=== PATIENT | female | born 1965 | race Two or more races ===

== ENCOUNTER 2022-07-23 05:17 | Inpatient (IN) | payer OTHER, SELFPAY ==
[2022-07-23] VITALS (7 sets, daily range): BP systolic 143–170; BP diastolic 82–114; PULSE 92–112; RESP 18–24; TEMP 36–37.1; O2SAT 92–100; BMI 32.8
--- NOTE | ~2022-07-23 | XR_ITS ---
EXAMINATION: XR CHEST CLINICAL INFORMATION: Post diuresis COMPARISON: Previous chest x-ray from yesterday TECHNIQUE: Frontal view of the chest was obtained. FINDINGS: The cardiac silhouette is still enlarged. There is interval improvement in interstitial markings suggestive of improved pulmonary edema. No pleural effusion or pneumothorax. Surgical clips in both breasts/axilla. No acute bone abnormality. XR/XR chest 1V IMPRESSION: Stable enlargement of the cardiac silhouette. Improved interstitial pulmonary edema.
--- NOTE | ~2022-07-23 | XR_ITS ---
EXAMINATION: XR CHEST CLINICAL INFORMATION: Dyspnea COMPARISON: None available. TECHNIQUE: Frontal view of the chest was obtained. FINDINGS: Lung volumes are symmetric. No focal consolidation is seen. There is mild interstitial prominence bilaterally which may indicate mild interstitial edema. No evidence of pneumothorax. Trace pleural effusions are difficult to exclude. Cardiac silhouette is enlarged. Bilateral axillary clips noted. No acute osseous findings are seen. XR/XR chest 1V IMPRESSION: Diffuse interstitial prominence which may indicate mild interstitial edema in the proper clinical setting. Enlarged cardiac silhouette.
[2022-07-23 05:59] LABS: MANUAL DIFF FLAG NO
[2022-07-23 06:01] LABS: Basophils Absolute Auto 0.1 X10*3/uL (0.0-0.2); Basophils Percent Auto 0.6 % (0-2); Eosinophils Absolute Auto 0.1 X10*3/uL (0.0-0.4); Eosinophils Percent Auto 0.9 % (0-4); Hematocrit 44.2 % (37.0-47.0); Hemoglobin 14.6 g/dl (12.0-16.0); Imm Gran Abs Auto 0.04 X10*3/uL (0.00-0.03); Imm Gran Pct Auto 0.4 % (0.0-0.4); Lymphocytes Absolute Auto 1.4 X10*3/uL (1.2-4.9); Mean Corpuscular Hemoglobin 31.6 pg (27.0-33.0); Mean Corpuscular Volume 95.7 fL (80.0-98.0); Mean Platelet Volume 10.2 fL (9.4-12.3); Monocytes Absolute Auto 0.8 X10*3/uL (0.1-1.2); Monocytes Percent Auto 8.7 % (2-11); Neutrophils Absolute Auto 6.6 x10*3/uL (2.0-8.3); Neutrophils Percent Auto 73.4 % (45-73); Platelet Count 238 X10*3/uL (160-400); Red Blood Count 4.62 X10*6/uL (4.20-5.50); Red Cell Distribution Width 14.9 % (11.0-16.0)
--- NOTE | 2022-07-23 06:03 | ED.SOB ---
HPI - SOB/Dyspnea General Chief Complaint: Dyspnea Stated Complaint: Difficulty breathing Time Seen by Provider: 07/23/22 05:51 History of Present Illness HPI Narrative: Patient is a 56-year-old female presents today with coughing congestion upper respiratory symptoms. The symptoms been ongoing for 3 weeks. Went to see urgent care. Continued to have coughing continued have upper respiratory symptoms. Patient from home. Had a slight muffling in voice. Denies any nausea vomiting diarrhea. No fever no chills. No leg swelling Related Data Allergies Allergy/AdvReac Type Severity Reaction Status Date / Time fluoxetine [Prozac] Allergy Unknown Unknown Verified 02/22/20 13:10 Review of Systems Review of Systems: Positive coughing congestion a history symptoms no leg swelling not change with position Yes all other systems are reviewed and are negative [facility] Past Medical History Medical History (Updated 07/23/22 @ 07:03 by Lyly West MD) Anemia Bipolar disorder GERD (gastroesophageal reflux disease) History of breast cancer Insomnia Overweight (BMI 25.0-29.9) Thrombocytopenia Vitamin D deficiency Surgical History History of lumpectomy of left breast Family History Family History Father No problems noted. Mother CAD (coronary artery disease) Gastric cancer Maternal Aunt Cancer of blood vessel Social History Social History Smoked in Last 30 Days: No Use of substances other than those prescribed or required for medical reasons: No Advance Directives: No Advance Directives Information Provided: Yes Patient : No Physical Exam Vital Signs: Vital Signs: Last Vital Signs Temp 97.6 F 07/23/22 05:27 Pulse 104 H 07/23/22 06:14 Resp 24 H 07/23/22 05:27 BP 162/114 H 07/23/22 05:27 Pulse Ox 96 07/23/22 05:27 O2 Del Method Room Air 07/23/22 05:27 BMI result Body Mass Index 32.8 Appearance: Alert. Oriented X3. No acute distress. Eyes: Pupils equal, round and reactive to light. ENT: Pharynx normal. Neck: Normal inspection. Neck supple. No lymph nodes noted. No crepitus CVS: Normal heart rate and rhythm. Pulses normal. Normal S1 and S2 Respiratory: No respiratory distress. Breath sounds normal. No Wheezing. No rales Abdomen: Soft and nontender. No rigidity. No distention. good BS x4 Skin: Skin warm and dry. Normal skin color. Normal skin turgor. Extremities: No lower extremity edema. Neurovascular intact to all extremities. No Lacerations. No Rash Neuro: Oriented X 3. No motor deficit. No sensory deficit. Moving all extermities. No slurred speech Medications Administered Discontinued Medications Generic Name Dose Route Start Last Admin Trade Name Freq PRN Reason Stop Dose Admin Albuterol/Ipratropium 3 ml 07/23/22 06:00 07/23/22 06:11 Albuterol/Iprat 2.5/0.5mg 3 Ml Ampul.Neb INHALE 07/23/22 06:01 3 ml ONCE ONE Administration Aspirin 324 mg 07/23/22 06:40 07/23/22 06:53 Aspirin 81 Mg Tab.Chew PO 07/23/22 06:41 324 mg ONCE ONE Administration Furosemide 40 mg 07/23/22 06:35 07/23/22 06:52 Furosemide 40 Mg/4 Ml Vial IVPUSH 07/23/22 06:36 40 mg ONCE ONE Administration Protocol Nitroglycerin 0.5 inch 07/23/22 06:40 07/23/22 06:53 Nitroglycerin 2 % Oint 1 Gm Packet TRANSDERMA 07/23/22 06:41 0.5 inch ONCE ONE Administration Medical Decision Making Medical Decision Making [facility] Narrative: Patient is 56 years old presents today with having increasing shortness of breath not feeling well. Patient was at urgent care diagnosis bronchitis. On exam patient was noted to have bilateral lower extremity edema. Mild wheezing bilaterally. Labs were done. Patient's BNP was 14 146. Troponin elevated at 30.8. Chest x-ray consistent with congestive heart failure. Lasix was started nitro was started aspirin given. Patient never had congestive heart failure in the past. O2 sat is 96% on room air. Patient's respiratory rate is elevated at 24. A CTA of the chest is currently pending. Will require admission for new onset CHF. Patient's COVID RSV flu test were all negative. My interpretation patient's EKG showed a Lab Data 07/23/22 05:50 07/23/22 05:50 Labs: Lab Results 07/23/22 07/23/22 07/23/22 Range/Units 05:50 05:50 05:50 WBC 9.0 (4.8-10.8) X10*3/uL RBC 4.62 (4.20-5.50) X10*6/uL Hgb 14.6 (12.0-16.0) g/dl Hct 44.2 (37.0-47.0) % MCV 95.7 (80.0-98.0) fL MCH 31.6 (27.0-33.0) pg MCHC 33.0 (31.0-35.0) g/dl RDW 14.9 (11.0-16.0) % Plt Count 238 (160-400) X10*3/uL MPV 10.2 (9.4-12.3) fL Immature Gran % (Auto) 0.4 (0.0-0.4) % Neut % (Auto) 73.4 H (45-73) % Lymph % (Auto) 16.0 L (20-40) % [place] % (Auto) 8.7 (2-11) % Eos % (Auto) 0.9 (0-4) % Baso % (Auto) 0.6 (0-2) % Lymph # (Auto) 1.4 (1.2-4.9) X10*3/uL [place] # (Auto) 0.8 (0.1-1.2) X10*3/uL Eos # (Auto) 0.1 (0.0-0.4) X10*3/uL Baso # (Auto) 0.1 (0.0-0.2) X10*3/uL Abs Immat Gran (auto) 0.04 H (0.00-0.03) X10*3/uL Absolute Neuts (auto) 6.6 (2.0-8.3) x10*3/uL Absolute Nucleated RBC 0.000 (0.0-0.012) X10*3/uL Nucleated RBC % (auto) 0.0 (0.0-0.2) /100WBC D-Dimer High Sensitivty 434 NG/ML Sodium 139 (135-145) mmol/L Potassium 3.8 (3.3-5.1) mmol/L Chloride 109 H (96-108) mmol/L Carbon Dioxide 19 L (22-29) mmol/L Anion Gap 15 (12-20) BUN 13 (9-16) mg/dL Creatinine 0.83 (0.5-1.4) mg/dL Estim Creat Clear Calc 70.6 Estimated GFR > 60 Random Glucose 125 H (60-115) mg/dL Calcium 8.8 (8.4-10.2) mg/dL Total Bilirubin 1.4 H (0.0-1.0) mg/dL Direct Bilirubin 0.3 (0.0-0.5) mg/dL AST 43 H (5-31) U/L ALT 79 H (0-31) U/L Alkaline Phosphatase 82 (39-117) U/L Troponin I High Sens (<3.5-17.0) ng/L B-Natriuretic Peptide (<100) pg/mL Total Protein 7.1 (6.5-8.0) g/dL Albumin 3.8 (3.5-5.0) g/dL Lipase 11 (8-78) U/L Influenza Type A (PCR) (Negative) Influenza Type B (PCR) (Negative) RSV RNA Qual (PCR) (Negative) SARS-CoV-2 RNA (RT-PCR) (Negative) 07/23/22 07/23/22 07/23/22 Range/Units 05:50 05:50 06:11 WBC (4.8-10.8) X10*3/uL RBC (4.20-5.50) X10*6/uL Hgb (12.0-16.0) g/dl Hct (37.0-47.0) % MCV (80.0-98.0) fL MCH (27.0-33.0) pg MCHC (31.0-35.0) g/dl RDW (11.0-16.0) % Plt Count (160-400) X10*3/uL MPV (9.4-12.3) fL Immature Gran % (Auto) (0.0-0.4) % Neut % (Auto) (45-73) % Lymph % (Auto) (20-40) % [place] % (Auto) (2-11) % Eos % (Auto) (0-4) % Baso % (Auto) (0-2) % Lymph # (Auto) (1.2-4.9) X10*3/uL [place] # (Auto) (0.1-1.2) X10*3/uL Eos # (Auto) (0.0-0.4) X10*3/uL Baso # (Auto) (0.0-0.2) X10*3/uL Abs Immat Gran (auto) (0.00-0.03) X10*3/uL Absolute Neuts (auto) (2.0-8.3) x10*3/uL Absolute Nucleated RBC (0.0-0.012) X10*3/uL Nucleated RBC % (auto) (0.0-0.2) /100WBC D-Dimer High Sensitivty NG/ML Sodium (135-145) mmol/L Potassium (3.3-5.1) mmol/L Chloride (96-108) mmol/L Carbon Dioxide (22-29) mmol/L Anion Gap (12-20) BUN (9-16) mg/dL Creatinine (0.5-1.4) mg/dL Estim Creat Clear Calc Estimated GFR Random Glucose (60-115) mg/dL Calcium (8.4-10.2) mg/dL Total Bilirubin (0.0-1.0) mg/dL Direct Bilirubin (0.0-0.5) mg/dL AST (5-31) U/L ALT (0-31) U/L Alkaline Phosphatase (39-117) U/L Troponin I High Sens 30.8 H (<3.5-17.0) ng/L B-Natriuretic Peptide 1446 H (<100) pg/mL Total Protein (6.5-8.0) g/dL Albumin (3.5-5.0) g/dL Lipase (8-78) U/L Influenza Type A (PCR) NEGATIVE (Negative) Influenza Type B (PCR) NEGATIVE (Negative) RSV RNA Qual (PCR) NEGATIVE (Negative) SARS-CoV-2 RNA (RT-PCR) NEGATIVE (Negative) Critical Care Time Critical Care Time Critical Care Time: Yes Total Critical Care Time: 40 Attestation: I have personally provided 40 minutes of critical care time exclusive of time spent on separately billable procedures. Time includes review of lab data, radiology results, discussion with consultants, and monitoring for potential decompensation. Interventions were performed as documented above Discharge Plan Discharge Clinical Impression: Congestive heart failure Patient Disposition: Admitted As Inpatient
[2022-07-23] MEDS: Albuterol/Iprat 2.5/0.5MG 3 ML AMPUL.NEB INHALE (06:11)
[2022-07-23 06:12] LABS: D Dimer High Sensitivity 434 NG/ML
[2022-07-23 06:25] LABS: Troponin-I High Sensitivity 30.8 ng/L (<3.5-17.0)
[2022-07-23 06:33] LABS: Alanine Aminotransferase 79 U/L (0-31); Albumin Level 3.8 g/dL (3.5-5.0); Alkaline Phosphatase 82 U/L (39-117); Anion Gap 15 (12-20); Aspartate Amino Transferase 43 U/L (5-31); B Type Natriuretic Peptide 1446 pg/mL (<100); Bilirubin Direct 0.3 mg/dL (0.0-0.5); Bilirubin Total 1.4 mg/dL (0.0-1.0); Blood Urea Nitrogen 13 mg/dL (9-16); Calcium 8.8 mg/dL (8.4-10.2); Carbon Dioxide 19 mmol/L (22-29); Chloride 109 mmol/L (96-108); Creatinine Clr Calc Pharmacy 70.6; Estimated Glomerular Filt Rate > 60; Glucose Random 125 mg/dL (60-115); Lipase 11 U/L (8-78); Potassium 3.8 mmol/L (3.3-5.1); Sodium 139 mmol/L (135-145); Total Protein 7.1 g/dL (6.5-8.0)
[2022-07-23] MEDS: Furosemide 40 MG/4 ML VIAL IVPUSH ×2 (06:52→20:00)
[2022-07-23 06:53] LABS: Influenza A PCR NEGATIVE (Negative); Influenza B PCR NEGATIVE (Negative); Resp Syncy Virus RNA Qual PCR NEGATIVE (Negative); SARS COV2 PCR INHOUSE NEGATIVE (Negative)
[2022-07-23] MEDS: Aspirin 81 MG TAB.CHEW 324 MG PO (06:53)
[2022-07-23] MEDS: Nitroglycerin 2 % Oint 1 GM Packet 0.5 INCH TRANSDERMA (06:53)
--- NOTE | 2022-07-23 07:00 | CA_ITS ---
Transthoracic Echocardiogram Patient (Last, First, Middle): Hollie Angel, Gender: Female Date of : 1965 Age: 56 Procedure Date: 07/23/2022 Procedure Type: Transthoracic Echocardiogram Location: [facility] Height: 152.4 cm Weight: 76.2 kg BSA: 1.73 m2 Heart Rate: bpm BP: 162 / 114 mmHg Area Operations Manager: Referring MD: Austin Martinez MD Symptoms: chf Study Quality: Excellent ECG Rhythm: Sinus Conclusions: - Mildly increased left ventricular cavity size. There is mildly increased left ventricular wall thickness. The left ventricular systolic function is severely decreased. The visually estimated ejection fraction is between 15-20%. - Mildly increased right ventricular cavity size. There is borderline right ventricular systolic function. - There is moderate mitral valve regurgitation. - Moderately elevated right atrial pressure. Moderate pulmonary hypertension is present. Findings Left Ventricle Mildly increased left ventricular cavity size. There is mildly increased left ventricular wall thickness. The left ventricular systolic function is severely decreased. The visually estimated ejection fraction is between 15 20%. There is severe global hypokinesis. Abnormal diastolic function is noted. Spectral Doppler is indicative of a pseudonormal filling pattern. Elevated filling pressures. Right Ventricle Mildly increased right ventricular cavity size. There is borderline right ventricular systolic function. Atria The left atrium is normal in size. Aortic Valve There is a normal trileaflet aortic valve. There is mild calcification of the aortic valve. There is no aortic valve stenosis. There is mild aortic valve regurgitation. Mitral Valve The anterior mitral leaflet has restricted mobility and the posterior mitral leaflet has restricted mobility. There is mild mitral annular calcification. There is moderate mitral valve regurgitation. There is no mitral valve stenosis. Pulmonic Valve Normal pulmonic valve structure and function. There is trace pulmonic valve regurgitation. Tricuspid Valve Normal tricuspid valve structure. There is moderate tricuspid valve regurgitation. Moderately elevated right atrial pressure. Moderate pulmonary hypertension is present. Great Vessels All visible segments of the aorta are normal in size. The visualized portions of the pulmonary artery and branches are normal. Venous The inferior vena cava is dilated and collapses greater than 50% with inspiration. Pericardium/Pleural There is no evidence of pericardial effusion. Prior Study Comparison No prior study available for comparison. Measurements 2D Linear Measurements IVSd: 1.05 0.6-0.9/0.6-1.0 cm LVIDd: 5.56 3.9-5.3/4.2-5.9 cm LVIDd Index: 3.21 2.4-3.2/2.2-3.1 cm/m2 LVIDs: 5.20 2.0-3.6 cm LVPWd: 1.14 0.7-1.1 cm Ao Root: 2.90 2.1-3.5 cm LA Diam: 4.20 2.7-3.8/3.0-4.0 cm LAIDs Index: 2.43 1.5-2.3 cm/m2 LV Mass: 305.35 67-162/88-224 g LV Mass Index: 176.50 43-95/49-115 g/m2 LVOT Diam: 2.00 3.0+(-)1.3 cm 2D Systolic Function EF 4C: 17.80 >55% EF 2C: 19.80 >55% EF BiP: 18.30 >55% Mitral Valve MV Pk E: 1.24 MV PK A: 0.64 MV Decel Time: 82.00 E/A: 1.90 E'Lateral: 5.44 E'Medial: 4.35 E/E' Med: 28.50 E/E' Lat: 22.80 PHT: 24.00 MVA PHT: 9.17 Decel [place]: 15.12 MR Vol - PW Dopp: 33.22 MR VTI: 1.51 MR ERO: 22.00 MR Alias Timothy: 0.36 MR RAD: 0.70 Aortic Valve AoV Pk Timothy: 1.55 AoV Mn Timothy: 0.99 AoV VTI: 0.26 AoV Pk Grad: 10.00 Aov Mn Grad: 5.00 URI Cont.VTI: 1.64 LVOT LVOT Pk Timothy: 0.76 LVOT Mn Timothy: 0.46 LVOT VTI: 0.13 LVOT Pk Grad: 2.00 LVOT Mn Grad: 1.00 LVOT Diam: 2.00 LVOT Area: 3.14 Diastolic Function MV Pk E: 1.24 MV Pk A: 0.64 E/A: 1.90 E'Medial: 4.35 E/E' Med: 28.50 E' Laterial: 5.44 E/E' Lat: 22.80 Right Ventricle TAPSE (mm): 22.00 Tricuspid Valve TR Pk Timothy: 3.26 TR Pk Grad: 43.00 RA Press: 8.00 RVSP: 51.00 Great Vessels Aorta Ao Root-2D: 2.90 2.0-3.7 cm Ao Asc: 3.00 2.1-3.4 cm Pulmonary Valve PV Pk Timothy: 0.86 Peak PV Grad: 3.00 Updated in Other Vendor System with Status of Final Pelon Williamson MD electronically signed on 07/23/2022 8:03:21 PM with status of Final
--- NOTE | 2022-07-23 07:01 | ECG_ITS ---
Test Reason : SOB Blood Pressure : / mmHG Vent. Rate : 104 BPM Atrial Rate : 104 BPM P-R Int : 132 ms QRS Dur : 088 ms QT Int : 376 ms P-R-T Axes : 044 -31 066 degrees QTc Int : 494 ms Sinus tachycardia Possible Left atrial enlargement Left axis deviation Left ventricular hypertrophy ( R in aVL , Sokolow-Serrano , Anibal product , Romhilt-Diop ) Nonspecific T wave abnormality Abnormal ECG No previous ECGs available Referred By: Lyly West Electronically Signed By:Pelon Williamson
--- NOTE | 2022-07-23 07:24 | PC.NURSE ---
Resumed care of this patient this morning, spent a considerable amount of time at bedside with night nurse and patient discussing situation as pt wants to leave AMA. Pt stating she will come back but needs to take care of things at home first. Providers made aware, pt educated to not leave without telling staff first, she is in agreement to get the testing done that is ordered at this time, but is not going to stay for an admission at this time. will continue to monitor needs.
--- NOTE | 2022-07-23 07:54 | P.HPHOSP_ITS ---
History of Present Illness Date of Service: 07/23/22 Chief Complaint: sob 56F PMH breast cancer s/p chemo and radiation, obesity, mood disorder, presented with sob. patient has been feeling sob for about 3 weeks, orthopenia, dry cough, raspy voice, thought she had viral illness, went to urgent care, was sent to ED to rule out pna. in ED found to have elevated bnp, ekg with signs of lvh, cxr with pulm edema and cardiomegaly. patient denies fever, chills, chest pain, reports pedal edema and weight gain. Review of Systems Review of Systems: Yes all other systems are reviewed and are negative [facility] Medical History (Updated 07/23/22 @ 07:57 by Austin Martinez MD) Anemia Bipolar disorder GERD (gastroesophageal reflux disease) History of breast cancer Overweight (BMI 25.0-29.9) Vitamin D deficiency Family History Father No problems noted. Mother CAD (coronary artery disease) Gastric cancer Maternal Aunt Cancer of blood vessel Surgical History History of lumpectomy of left breast Social History Smoked in Last 30 Days: No Use of substances other than those prescribed or required for medical reasons: No Advance Directives: No Advance Directives Information Provided: Yes Patient : No Meds Allergies Allergy/AdvReac Type Severity Reaction Status Date / Time fluoxetine [Prozac] Allergy Unknown Unknown Verified 02/22/20 13:10 Active Medications: Current Medications Enoxaparin Sodium (Enoxaparin Sodium 40 Mg/0.4 Ml Syringe) 40 mg SUBCUT Q24H JENNIFER Furosemide (Furosemide 40 Mg/4 Ml Vial) 40 mg IVPUSH BID@0900,1800 JENNIFER; Protocol Pharmacy Consult (Consult Rx Perform Med Rec) 1 each MISCELLANE ONCE PRN PRN Reason: Consult order Pharmacy Consult (Consult Rx Perform Med Rec) 1 each MISCELLANE ONCE PRN PRN Reason: Consult order Sodium Chloride (0.9 % Sodium Chloride Flush 3 Ml Syringe) 3 ml IVFLUSH QSHIFT JENNIFER Physical Exam Vital Signs and Narrative: Vital Signs: Last Vital Signs Temp 97.6 F 07/23/22 05:27 Pulse 104 H 07/23/22 07:53 Resp 18 07/23/22 07:53 BP 160/101 H 07/23/22 07:53 Pulse Ox 96 07/23/22 05:27 O2 Del Method Room Air 07/23/22 05:27 BMI result Body Mass Index 32.8 General: AO X 3, dyspniec Resp: Crackles bilateral, mild accessory muscles used CVS: S1,S2,Rapid, regular, pedal edema GI: soft, non tender, non distended Neuro: motor grossly intact, alert Psych: appropriate affect, appropriate insight Results Labs 07/23/22 05:50 07/23/22 05:50 Labs: Laboratory Results - last 24 hr 07/23/22 07/23/22 07/23/22 05:50 05:50 05:50 MCV 95.7 MCH 31.6 MCHC 33.0 RDW 14.9 Plt Count 238 MPV 10.2 Immature Gran % (Auto) 0.4 Neut % (Auto) 73.4 H Lymph % (Auto) 16.0 L [place] % (Auto) 8.7 Eos % (Auto) 0.9 Baso % (Auto) 0.6 Lymph # (Auto) 1.4 [place] # (Auto) 0.8 Eos # (Auto) 0.1 Baso # (Auto) 0.1 Abs Immat Gran (auto) 0.04 H Absolute Neuts (auto) 6.6 Absolute Nucleated RBC 0.000 Nucleated RBC % (auto) 0.0 D-Dimer High Sensitivty 434 Anion Gap 15 Estim Creat Clear Calc 70.6 Estimated GFR > 60 Random Glucose 125 H Calcium 8.8 Total Bilirubin 1.4 H Direct Bilirubin 0.3 AST 43 H ALT 79 H Alkaline Phosphatase 82 Troponin I High Sens B-Natriuretic Peptide Total Protein 7.1 Albumin 3.8 Lipase 11 Influenza Type A (PCR) Influenza Type B (PCR) RSV RNA Qual (PCR) SARS-CoV-2 RNA (RT-PCR) 07/23/22 07/23/22 07/23/22 05:50 05:50 06:11 MCV MCH MCHC RDW Plt Count MPV Immature Gran % (Auto) Neut % (Auto) Lymph % (Auto) [place] % (Auto) Eos % (Auto) Baso % (Auto) Lymph # (Auto) [place] # (Auto) Eos # (Auto) Baso # (Auto) Abs Immat Gran (auto) Absolute Neuts (auto) Absolute Nucleated RBC Nucleated RBC % (auto) D-Dimer High Sensitivty Anion Gap Estim Creat Clear Calc Estimated GFR Random Glucose Calcium Total Bilirubin Direct Bilirubin AST ALT Alkaline Phosphatase Troponin I High Sens 30.8 H B-Natriuretic Peptide 1446 H Total Protein Albumin Lipase Influenza Type A (PCR) NEGATIVE Influenza Type B (PCR) NEGATIVE RSV RNA Qual (PCR) NEGATIVE SARS-CoV-2 RNA (RT-PCR) NEGATIVE Imaging Radiologist's Impressions: Impressions Chest X-Ray 07/23/22 05:43 IMPRESSION: Diffuse interstitial prominence which may indicate mild interstitial edema in the proper clinical setting. Enlarged cardiac silhouette. Assessment and Plan (1) Congestive heart failure: Status: Acute Plan 56F PMH breast cancer s/p chemo and radiation, obesity, mood disorder, presented with sob acute chf unspecified iv lasix, is and os, echo, cardio eval mildly elevated ddimer very low likelihood of vte history of breast ca outpatinet follow up obesity weight loss mood disorder dvt prophylaxis- lovenox full code patient with new onset chf requiring iv diuresis, signifincant volume overload therefore likely to need atleast 2 midnights inpatient Time Spent With Patient Time: Total time managing care of this patient today ____ minutes. Quality Stroke Does the patient have a stroke diagnosis?: No VTE Prior VTE?: No VTE Risk Level:: Medical - moderate - high VTE Device Contraindication: Treatment Not Indicated VTE Drug Contraindication: N/A - Med Ordered
--- NOTE | 2022-07-23 07:55 | PC.NURSE ---
Son at beside, re-reviewed plan, and new diagnosis, pt is in agreement to stay at hospital, and continue monitoring.
--- NOTE | 2022-07-23 08:00 | PC.NURSE ---
Verified Lasix doseage with Provider, he does not want her to receive 0900 dose, and to proceed with next dose at 2100, pharmacy called to update dose
[2022-07-23 08:01] LABS: Cholesterol 159 mg/dL; HDL Cholesterol 47 mg/dL; LDL Cholesterol Calculated 97 mg/dl; Triglycerides 78 mg/dL
[2022-07-23 08:10] LABS: Estimated Average Glucose 105 mg/dL; Hemoglobin A1c % 5.3 %
[2022-07-23] MEDS: Enoxaparin Sodium 40 MG/0.4 ML SYRINGE SUBCUT (08:10)
[2022-07-23] MEDS: 0.9 % Sodium Chloride Flush 3 ML SYRINGE IVFLUSH ×2 (08:11→15:51)
--- NOTE | 2022-07-23 09:20 | PHA.MEDREC ---
Pharmacy Consult ? Medication Reconciliation Pharmacy has completed the medication reconciliation. Patient states the only home med she is on is occasional albuterol inhaler
[2022-07-23] MEDS: Isosorbide Mononitrate 30 MG TAB.ER.24H PO (13:53)
[2022-07-23] MEDS: Losartan Potassium 25 MG TABLET PO (13:53)
--- NOTE | 2022-07-23 14:47 | P.CONCA_ITS ---
History of Present Illness History of Present Illness Date of Service: 07/23/22 Requesting physician: Austin Martinez Chief complaint: CHF Narrative: 56-year-old female who we are consulted for acute congestive heart failure. She has been experiencing shortness of breath and cough specially with laying flat over the last few weeks. She has been treated for bronchitis. She was sent in for chest x-ray which showed concern for congestive heart failure and she was admitted. She is hypertensive. She has history of breast cancer involving the left breast requiring surgery and radiation approximately 20 years ago. She also had breast cancer on the right side requiring surgery. She has some orthopnea. Clinically she appears to be volume overloaded. She also had some chest discomfort which she describes as a tight feeling 2 weeks ago before the breathing issue started. She has not had recurrent chest discomfort. Blood pressure as mentioned is elevated. She is also tachycardic. [facility] Past Medical History Medical History (Updated 07/23/22 @ 07:57 by Austin Martinez MD) Anemia Bipolar disorder GERD (gastroesophageal reflux disease) History of breast cancer Overweight (BMI 25.0-29.9) Vitamin D deficiency Family History Family History Father No problems noted. Mother CAD (coronary artery disease) Gastric cancer Maternal Aunt Cancer of blood vessel Surgical History Surgical History History of lumpectomy of left breast Social History Social History Household Members: None Housing: Apartment Patient Tobacco Use Status: Never used Tobacco Meds Allergies Allergy/AdvReac Type Severity Reaction Status Date / Time fluoxetine [Prozac] Allergy Unknown Unknown Verified 02/22/20 13:10 Active Medications: Current Medications Enoxaparin Sodium (Enoxaparin Sodium 40 Mg/0.4 Ml Syringe) 40 mg SUBCUT Q24H [facility] Last Admin: 07/23/22 08:10 Dose: 40 mg Furosemide (Furosemide 40 Mg/4 Ml Vial) 40 mg IVPUSH BID@0900,1800 [facility]; Protocol Isosorbide Mononitrate (Isosorbide Mononitrate 30 Mg Tab.Er.24h) 30 mg PO DAILY JENN[facility]ER; Protocol Last Admin: 07/23/22 13:53 Dose: 30 mg Losartan Potassium (Losartan Potassium 25 Mg Tablet) 25 mg PO DAILY [facility]; Protocol Last Admin: 07/23/22 13:53 Dose: 25 mg Pharmacy Consult (Consult Rx Perform Med Rec) 1 each MISCELLANE ONCE PRN PRN Reason: Consult order Pharmacy Consult (Consult Rx Perform Med Rec) 1 each MISCELLANE ONCE PRN PRN Reason: Consult order Sodium Chloride (0.9 % Sodium Chloride Flush 3 Ml Syringe) 3 ml IVFLUSH QSHIFT [facility] Last Admin: 07/23/22 08:11 Dose: 3 ml Home Medications Medication Instructions Recorded Confirmed Last Taken Type albuterol sulfate 90 mcg/actuation 2 puff inhalation Q4H PRN 07/23/22 07/23/22 Unknown History aerosol inhaler (Ventolin HFA) Shortness Of Breath Or Wheezing Physical Exam Vital Signs: Vital Signs: Last Vital Signs Temp 96.8 F 07/23/22 12:00 Pulse 109 H 07/23/22 12:00 Resp 20 07/23/22 12:00 BP 170/106 H 07/23/22 12:00 Pulse Ox 100 07/23/22 12:00 O2 Del Method Room Air 07/23/22 12:00 BMI result Body Mass Index 32.8 GENERAL APPEARANCE: in no acute distress, pleasant. NECK: no carotid bruit, + jugular venous distention. SKIN: no suspicious lesions, warm and dry. HEART: no murmurs, regular rate and rhythm. Tachycardic. LUNGS: clear to auscultation bilaterally. ABDOMEN: soft, nontender. EXTREMITIES: + edema. PERIPHERAL PULSES: equal. NEUROLOGIC: No gross deficits, AAO X 3 Objective Labs and Meds 07/23/22 05:50 07/23/22 05:50 Lab results: Laboratory Results - last 24 hr 07/23/22 07/23/22 07/23/22 05:50 05:50 05:50 WBC 9.0 RBC 4.62 Hgb 14.6 Hct 44.2 MCV 95.7 MCH 31.6 MCHC 33.0 RDW 14.9 Plt Count 238 MPV 10.2 Immature Gran % (Auto) 0.4 Neut % (Auto) 73.4 H Lymph % (Auto) 16.0 L [place] % (Auto) 8.7 Eos % (Auto) 0.9 Baso % (Auto) 0.6 Lymph # (Auto) 1.4 [place] # (Auto) 0.8 Eos # (Auto) 0.1 Baso # (Auto) 0.1 Abs Immat Gran (auto) 0.04 H Absolute Neuts (auto) 6.6 Absolute Nucleated RBC 0.000 Nucleated RBC % (auto) 0.0 D-Dimer High Sensitivty 434 Sodium 139 Potassium 3.8 Chloride 109 H Carbon Dioxide 19 L Anion Gap 15 BUN 13 Creatinine 0.83 Estim Creat Clear Calc 70.6 Estimated GFR > 60 Random Glucose 125 H Estimat Average Glucose Hemoglobin A1c % Calcium 8.8 Total Bilirubin 1.4 H Direct Bilirubin 0.3 AST 43 H ALT 79 H Alkaline Phosphatase 82 Troponin I High Sens B-Natriuretic Peptide Total Protein 7.1 Albumin 3.8 Triglycerides 78 Cholesterol 159 LDL Cholesterol, Calc 97 HDL Cholesterol 47 Lipase 11 Influenza Type A (PCR) Influenza Type B (PCR) RSV RNA Qual (PCR) SARS-CoV-2 RNA (RT-PCR) 07/23/22 07/23/22 07/23/22 05:50 05:50 05:50 WBC RBC Hgb Hct MCV MCH MCHC RDW Plt Count MPV Immature Gran % (Auto) Neut % (Auto) Lymph % (Auto) [place] % (Auto) Eos % (Auto) Baso % (Auto) Lymph # (Auto) [place] # (Auto) Eos # (Auto) Baso # (Auto) Abs Immat Gran (auto) Absolute Neuts (auto) Absolute Nucleated RBC Nucleated RBC % (auto) D-Dimer High Sensitivty Sodium Potassium Chloride Carbon Dioxide Anion Gap BUN Creatinine Estim Creat Clear Calc Estimated GFR Random Glucose Estimat Average Glucose 105 Hemoglobin A1c % 5.3 Calcium Total Bilirubin Direct Bilirubin AST ALT Alkaline Phosphatase Troponin I High Sens 30.8 H B-Natriuretic Peptide 1446 H Total Protein Albumin Triglycerides Cholesterol LDL Cholesterol, Calc HDL Cholesterol Lipase Influenza Type A (PCR) Influenza Type B (PCR) RSV RNA Qual (PCR) SARS-CoV-2 RNA (RT-PCR) 07/23/22 06:11 WBC RBC Hgb Hct MCV MCH MCHC RDW Plt Count MPV Immature Gran % (Auto) Neut % (Auto) Lymph % (Auto) [place] % (Auto) Eos % (Auto) Baso % (Auto) Lymph # (Auto) [place] # (Auto) Eos # (Auto) Baso # (Auto) Abs Immat Gran (auto) Absolute Neuts (auto) Absolute Nucleated RBC Nucleated RBC % (auto) D-Dimer High Sensitivty Sodium Potassium Chloride Carbon Dioxide Anion Gap BUN Creatinine Estim Creat Clear Calc Estimated GFR Random Glucose Estimat Average Glucose Hemoglobin A1c % Calcium Total Bilirubin Direct Bilirubin AST ALT Alkaline Phosphatase Troponin I High Sens B-Natriuretic Peptide Total Protein Albumin Triglycerides Cholesterol LDL Cholesterol, Calc HDL Cholesterol Lipase Influenza Type A (PCR) NEGATIVE Influenza Type B (PCR) NEGATIVE RSV RNA Qual (PCR) NEGATIVE SARS-CoV-2 RNA (RT-PCR) NEGATIVE Imaging Radiologist's impression: Impressions Chest X-Ray 07/23/22 05:43 IMPRESSION: Diffuse interstitial prominence which may indicate mild interstitial edema in the proper clinical setting. Enlarged cardiac silhouette. Assessment and Plan (1) Congestive heart failure: Status: Acute Plan Pleasant 56-year-old female with bipolar disorder and background of breast cancer requiring left mastectomy and radiation therapy approximately 20 years ago presenting for shortness of breath and congestive heart failure. Clinically she appears to be volume overloaded and has peripheral edema as well as JVD. Agree with IV diuretics. Blood pressure is elevated. Adding losartan 25 mg once a day. Will also add isosorbide mononitrate 30 mg once a day. Will get an echocardiogram on her. Given radiation the past she can have restrictive cardiomyopathy but sometimes coronary disease specially involving the coronary ostia is a possibility too. Her EKG is showing left ventricular hypertrophy but does not have any dynamic ischemic changes currently. High sensitivity troponin level is 30.8 and BNP is 1 446. Check echocardiogram to assess for any cardiomyopathy. If she has significant cardiomyopathy then she may need inpatient ischemic evaluation. Currently would avoid beta blockers till we have echocardiography performed to rule out any LV dysfunction. We will follow along with you. Please avoid beta-jacquelyn as mentioned. Thank you for allowing me to participate in the care of your patient. Please feel free to contact me if you have any questions. Time Spent With Patient Time: Total time managing care of this patient today ____ minutes. Procedures Date of Service Date of Service: 07/23/22
[2022-07-23] MEDS: guaiFEN/Codeine SF 200/20/10ML 10 ML LIQUID 5 ML PO ×2 (15:49→19:59)
[2022-07-23] MEDS: Zolpidem Tartrate 5 MG TABLET PO (20:11)
[2022-07-23] MEDS: Acetaminophen 325 MG TABLET 650 MG PO (20:11)
[2022-07-24] MEDS: guaiFEN/Codeine SF 200/20/10ML 10 ML LIQUID 5 ML PO ×4 (00:05→19:51)
[2022-07-24] MEDS: 0.9 % Sodium Chloride Flush 3 ML SYRINGE IVFLUSH ×3 (00:08→17:36)
[2022-07-24 02:58] VITALS: BP 138/78; PULSE 84; RESP 20; TEMP 36.4; O2SAT 95
[2022-07-24 06:32] LABS: Hematocrit 46.8 % (37.0-47.0); Mean Corpuscular HGB Conc 32.1 g/dl (31.0-35.0); Mean Corpuscular Hemoglobin 31.6 pg (27.0-33.0); Mean Corpuscular Volume 98.7 fL (80.0-98.0); Mean Platelet Volume 10.3 fL (9.4-12.3); Platelet Count 246 X10*3/uL (160-400); Red Blood Count 4.74 X10*6/uL (4.20-5.50); Red Cell Distribution Width 15.5 % (11.0-16.0); White Blood Count 9.8 X10*3/uL (4.8-10.8)
[2022-07-24 07:06] LABS: Anion Gap 14 (12-20); Blood Urea Nitrogen 13 mg/dL (9-16); Calcium 9.1 mg/dL (8.4-10.2); Carbon Dioxide 29 mmol/L (22-29); Chloride 103 mmol/L (96-108); Creatinine Clr Calc Pharmacy 56.4; Estimated Glomerular Filt Rate 55; Glucose Fasting 150 mg/dL (60-99); Magnesium 2.1 mg/dL (1.6-2.6); Potassium 4.3 mmol/L (3.3-5.1); Sodium 142 mmol/L (135-145)
[2022-07-24 07:26] VITALS: BP 133/81; PULSE 91; RESP 16; TEMP 36.1; O2SAT 92
[2022-07-24] MEDS: Losartan Potassium 25 MG TABLET PO (07:58)
[2022-07-24] MEDS: Isosorbide Mononitrate 30 MG TAB.ER.24H PO (07:58)
[2022-07-24] MEDS: Enoxaparin Sodium 40 MG/0.4 ML SYRINGE SUBCUT (08:03)
[2022-07-24] MEDS: Furosemide 40 MG/4 ML VIAL IVPUSH ×2 (08:13→19:00)
--- NOTE | 2022-07-24 09:29 | P.PNIM_ITS ---
Subjective Subjective Date of Service: 07/24/22 Interval History: sob somewhat improved Physical Exam Vital Signs: Vital Signs: Last Vital Signs Temp 96.9 F 07/24/22 07:26 Pulse 91 07/24/22 07:26 Resp 16 07/24/22 07:26 BP 133/81 07/24/22 07:26 Pulse Ox 92 07/24/22 07:26 O2 Del Method Room Air 07/24/22 07:26 BMI result Body Mass Index 32.8 General: AO X 3, less dyspneic Resp: CTA bilateral, no accessory muscles used CVS: S1,S2,RRR, 1-2 + le edema GI: soft, non tender, non distended Neuro: motor grossly intact, alert Psych: appropriate affect, appropriate insight Objective Data Active Medications Acetaminophen (Acetaminophen 325 Mg Tablet) 650 mg PO Q8H PRN PRN Reason: Pain, Mild (Pain Scale 1-3) Last Admin: 07/23/22 20:11 Dose: 650 mg Documented By: MIC Enoxaparin Sodium (Enoxaparin Sodium 40 Mg/0.4 Ml Syringe) 40 mg SUBCUT Q24H [facility] Last Admin: 07/24/22 08:03 Dose: 40 mg Documented By: BLAYNE Furosemide (Furosemide 40 Mg/4 Ml Vial) 40 mg IVPUSH BID@0900,1800 [facility]; Protocol Last Admin: 07/24/22 08:13 Dose: 40 mg Documented By: BLAYNE Guaifenesin/Codeine Phosphate (Guaifen/Codeine Sf 200/20/10ml 10 Ml Liquid) 5 ml PO Q4H PRN PRN Reason: Cough Last Admin: 07/24/22 08:01 Dose: 5 ml Documented By: BLAYNE Isosorbide Mononitrate (Isosorbide Mononitrate 30 Mg Tab.Er.24h) 30 mg PO DAILY [facility]; Protocol Last Admin: 07/24/22 07:58 Dose: 30 mg Documented By: BLAYNE Losartan Potassium (Losartan Potassium 25 Mg Tablet) 25 mg PO DAILY [facility]; Protocol Last Admin: 07/24/22 07:58 Dose: 25 mg Documented By: BLAYNE Pharmacy Consult (Consult Rx Perform Med Rec) 1 each MISCELLANE ONCE PRN PRN Reason: Consult order Pharmacy Consult (Consult Rx Perform Med Rec) 1 each MISCELLANE ONCE PRN PRN Reason: Consult order Sodium Chloride (0.9 % Sodium Chloride Flush 3 Ml Syringe) 3 ml IVFLUSH QSHIFT [facility] Last Admin: 07/24/22 08:03 Dose: 3 ml Documented By: BLAYNE Labs 07/24/22 06:05 07/24/22 06:05 Labs: Laboratory Results - last 24 hr 07/24/22 07/24/22 06:05 06:05 MCV 98.7 H MCH 31.6 MCHC 32.1 RDW 15.5 Plt Count 246 MPV 10.3 Absolute Nucleated RBC 0.000 Nucleated RBC % (auto) 0.0 Anion Gap 14 Estim Creat Clear Calc 56.4 Estimated GFR 55 Fasting Glucose 150 H Calcium 9.1 Magnesium 2.1 Assessment and Plan (1) Congestive heart failure: Status: Acute Plan 56F PMH breast cancer s/p chemo and radiation, obesity, mood disorder, presented with sob acute systolic chf iv lasix, is and os, echo with global hypokinesis, EF 15-20%, moderate pulm hypertension cardio following repeat cxr history of breast ca outpatient follow up HTN not on meds at home started on losartan, imdur holding off on beta jacquelyn for now obesity weight loss mood disorder dvt prophylaxis- lovenox full code reason for continued hospitalization:iv diuresis, significnat overload Time Spent With Patient Time: Total time managing care of this patient today ____ minutes. Quality Stroke Does the patient have a stroke diagnosis?: No VTE Prior VTE?: No VTE Risk Level:: Medical - moderate - high VTE Device Contraindication: Treatment Not Indicated VTE Drug Contraindication: N/A - Med Ordered
[2022-07-24 11:30] VITALS: BP 117/76; PULSE 92; RESP 20; TEMP 36.6; O2SAT 97
--- NOTE | 2022-07-24 13:03 | MHC.CM.PN ---
Pt admitted with dx CHF. Pt lives at home, independent/self-care, no DME/services. D/C plan pending further evaluation/cardio consult, but pt would like to return home self-care. Pt can transport herself or have her son pick her up. HCP filled out today with pt and placed in chart. No PCP, but gave pt a list of local PCP's.
--- NOTE | 2022-07-24 13:20 | PM.PNCARD ---
Subjective Subjective Date of Service: 07/24/22 Interval history: Seen and examined at bedside. Overall improving and symptomatically getting better. We discussed about the echo findings that she has severe cardiomyopathy at this stage. Physical Exam Vital Signs: Last Vital Signs Temp 97.8 F 07/24/22 11:30 Pulse 92 07/24/22 11:30 Resp 20 07/24/22 11:30 BP 117/76 07/24/22 11:30 Pulse Ox 97 07/24/22 11:30 O2 Del Method Room Air 07/24/22 11:30 BMI result Body Mass Index 32.8 GENERAL APPEARANCE: in no acute distress, pleasant. NECK: no carotid bruit, + jugular venous distention. SKIN: no suspicious lesions, warm and dry. HEART: no murmurs, regular rate and rhythm. Tachycardic. LUNGS: clear to auscultation bilaterally. ABDOMEN: soft, nontender. EXTREMITIES: + edema. PERIPHERAL PULSES: equal. NEUROLOGIC: No gross deficits, AAO X 3 Objective Labs and Meds 07/24/22 06:05 07/24/22 06:05 Lab results: Laboratory Results - last 24 hr 07/24/22 07/24/22 06:05 06:05 WBC 9.8 RBC 4.74 Hgb 15.0 Hct 46.8 MCV 98.7 H MCH 31.6 MCHC 32.1 RDW 15.5 Plt Count 246 MPV 10.3 Absolute Nucleated RBC 0.000 Nucleated RBC % (auto) 0.0 Sodium 142 Potassium 4.3 Chloride 103 Carbon Dioxide 29 Anion Gap 14 BUN 13 Creatinine 1.04 Estim Creat Clear Calc 56.4 Estimated GFR 55 Fasting Glucose 150 H Calcium 9.1 Magnesium 2.1 Progress Note: A&P Assessment and plan (1) Congestive heart failure: Status: Acute (2) Cardiomyopathy: Status: Acute Plan Pleasant 56 year female who is presenting with new onset congestive heart failure with echocardiography evidence of severe LV dysfunction. Overall feeling better with diuretics and guideline directed medical therapy. I think she still has volume overload and should stay on IV diuretics today. I am adding spironolactone 25 mg once a day. I am stopping the isosorbide mononitrate. Tomorrow if blood pressure is reasonable we can add carvedilol 3.125 mg b.i.d.. Overall improving. We discussed in detail about workup for cardiomyopathy including diagnostic angiography. She wishes to go home and do further testing as outpatient. She has been ambulating and has no symptoms with activity. I think it will be reasonable to discharge her and do diagnostic angiogram as outpatient. We will follow along with you. Thank you for allowing me to participate in the care of your patient. Please feel free to contact me if you have any questions. Time Spent With Patient Time: Total time managing care of this patient today ____ minutes. Progress Note: Quality Stroke Does the patient have a stroke diagnosis?: No Procedures Date of Service Date of Service: 07/24/22
[2022-07-24] MEDS: Spironolactone 25 MG TABLET PO (14:36)
[2022-07-24] MEDS: Aspirin 81 MG TAB.CHEW PO (14:36)
[2022-07-24 15:37] VITALS: BP 133/71; PULSE 106; RESP 18; TEMP 37; O2SAT 95
[2022-07-24 19:14] VITALS: BP 119/82; PULSE 95; RESP 15; TEMP 36.5; O2SAT 97
[2022-07-24] MEDS: Acetaminophen 325 MG TABLET 650 MG PO (19:50)
[2022-07-24 23:17] VITALS: BP 114/63; PULSE 69; RESP 15; TEMP 36.1; O2SAT 92
[2022-07-25 03:16] VITALS: BP 119/74; PULSE 83; RESP 17; TEMP 36.9; O2SAT 92
[2022-07-25] MEDS: 0.9 % Sodium Chloride Flush 3 ML SYRINGE IVFLUSH ×2 (03:40→08:05)
[2022-07-25 07:01] LABS: Hemoglobin 15.9 g/dl (12.0-16.0); Mean Corpuscular HGB Conc 32.4 g/dl (31.0-35.0); Mean Corpuscular Hemoglobin 31.4 pg (27.0-33.0); Mean Corpuscular Volume 96.8 fL (80.0-98.0); Mean Platelet Volume 10.2 fL (9.4-12.3); Platelet Count 237 X10*3/uL (160-400); Red Blood Count 5.06 X10*6/uL (4.20-5.50); Red Cell Distribution Width 15.7 % (11.0-16.0); White Blood Count 8.7 X10*3/uL (4.8-10.8)
[2022-07-25 07:16] LABS: Anion Gap 12 (12-20); Blood Urea Nitrogen 18 mg/dL (9-16); Calcium 9.3 mg/dL (8.4-10.2); Carbon Dioxide 28 mmol/L (22-29); Chloride 106 mmol/L (96-108); Creatinine Clr Calc Pharmacy 68.2; Estimated Glomerular Filt Rate > 60; Glucose Fasting 78 mg/dL (60-99); Magnesium 2.3 mg/dL (1.6-2.6); Sodium 142 mmol/L (135-145)
[2022-07-25 07:26] VITALS: BP 118/87; PULSE 93; RESP 20; TEMP 36.3; O2SAT 99
[2022-07-25] MEDS: Enoxaparin Sodium 40 MG/0.4 ML SYRINGE SUBCUT (08:04)
[2022-07-25] MEDS: Spironolactone 25 MG TABLET PO (08:04)
[2022-07-25] MEDS: Furosemide 40 MG/4 ML VIAL IVPUSH (08:04)
[2022-07-25] MEDS: Losartan Potassium 25 MG TABLET PO (08:04)
[2022-07-25] MEDS: Aspirin 81 MG TAB.CHEW PO (08:04)
[2022-07-25 11:11] VITALS: BP 100/79; PULSE 91; RESP 20; TEMP 37.1; O2SAT 96
--- NOTE | 2022-07-25 11:43 | P.DS_ITS ---
DS: Providers Provider Date of Service: 07/25/22 Date of admission: 07/23/22 07:53 Primary care physician: None Physician Consults: 07/23/22 06:57 Consult to Cardiology Routine Consulting Provider: [facility] Cardiovascular Services Reason for consultation: new chf DS: Diagnosis Discharge Diagnosis (1) Congestive heart failure: Status: Acute (2) Cardiomyopathy: Status: Acute (3) Hypertension: Status: Acute DS: Summary Hospital Course Hospital Course: Admission note HPI 56F PMH breast cancer s/p chemo and radiation, obesity, mood disorder, presented with sob. patient has been feeling sob for about 3 weeks, orthopenia, dry cough, raspy voice, thought she had viral illness, went to urgent care, was sent to ED to rule out pna. in ED found to have elevated bnp, ekg with signs of lvh, cxr with pulm edema and cardiomegaly. patient denies fever, chills, chest pain, reports pedal edema and weight gain. Hospital course The patient was admitted for evaluation of difficulties breathing and edema. found to have elevated BNP and CXR suggestive of fluids overload. Treated with IV lasix with good response as she was evaluated by machinery rigger as an ECHO showed global hypokinesia with low EF of 15-20% and moderate hypertension. BP maintained well on Losartan, Spironolactone and Carvedilol. Aspirin was started with a plan for outpatient follow up with cardiology for further ischemic work up with possible angiogram. she will be looking for new PCP. Start baby aspirin Start Losartan, Spironolactone and Carvedilol Follow with Dr Williamson from cardiology as outpatient Monitor your blood pressure for next week and report readings to PCP\machinery rigger Time Spent with Patient Time attestation: Total time managing care of this patient today ____ minutes. Discharge coordination time: Greater than 30 minutes Quality: Safe Use of Opioids Does Pt have an Active Cancer Diagnosis on the Problem List?: Yes Opioid Measure Date for [facility] [address] Report: 06/25/22 Opioid Measure Time for [facility] [address] [address] Report: 11:50 Quality: Stroke Does the patient have a stroke diagnosis?: No Physical Exam Vital Signs: Vital Signs: Last Vital Signs Temp 98.7 F 07/25/22 11:11 Pulse 91 07/25/22 11:11 Resp 20 07/25/22 11:11 BP 100/79 07/25/22 11:11 Pulse Ox 96 07/25/22 11:11 O2 Del Method Room Air 07/25/22 11:11 BMI result Body Mass Index 32.8 Const: Other: Constitutional : Awake, interactive, not in distress Neck : Normal inspection, Supple Cardiovascular : RRR, no JVP, no lower extremity edema Respiratory : good bilateral air entry, no crackles, fine scattered expiratory wheezes Gastrointestinal: soft, lax, Normal bowel sounds, Non tender Skin : Warm, Dry Neurological : Alert & oriented x3, No focal deficit DS: Data Data Completed and Pending Labs on day of discharge: Laboratory Results - last 24 hr 07/25/22 07/25/22 06:31 06:31 WBC 8.7 RBC 5.06 Hgb 15.9 Hct 49.0 H MCV 96.8 MCH 31.4 MCHC 32.4 RDW 15.7 Plt Count 237 MPV 10.2 Absolute Nucleated RBC 0.000 Nucleated RBC % (auto) 0.0 Sodium 142 Potassium 4.0 Chloride 106 Carbon Dioxide 28 Anion Gap 12 BUN 18 H Creatinine 0.86 Estim Creat Clear Calc 68.2 Estimated GFR > 60 Fasting Glucose 78 Calcium 9.3 Magnesium 2.3 Imaging Chest x-ray: Radiologist's impression: ITS Impressions Chest X-Ray 07/23/22 05:43 IMPRESSION: Diffuse interstitial prominence which may indicate mild interstitial edema in the proper clinical setting. Enlarged cardiac silhouette. Chest X-Ray 07/24/22 10:35 IMPRESSION: Stable enlargement of the cardiac silhouette. Improved interstitial pulmonary edema. Discharge Plan Discharge Anticipated Discharge Date/Time: 07/25/22 11:30 Patient Disposition: Home, Self-Care Discharge Diagnosis: Heart failure with exacerbation Referrals: Physician,None [Primary Care Provider] - 1 Week Discharge Medications: New spironolactone 25 mg Tablet 25 mg PO DAILY Qty: 30 0RF Protocol: Hold for SBP< HOLD for SBP < : 90 carvedilol 3.125 mg Tablet 3.125 mg PO BID Qty: 60 0RF Protocol: Hold for SBP/HR < HOLD for SBP < : 90 HOLD for HR < : 60 losartan 25 mg Tablet 25 mg PO DAILY Qty: 30 0RF Protocol: Hold for SBP< HOLD for SBP < : 90 aspirin 81 mg Tablet,Chewable 81 mg PO DAILY Qty: 30 0RF furosemide 40 mg tablet 40 mg PO DAILY Qty: 30 0RF (DME) blood pressure monitor [Blood Pressure Kit] Kit See Rx Instructions .Route Qty: 1 0RF Rx Instructions: As directed Continued albuterol sulfate [Ventolin HFA] 90 mcg/actuation HFA aerosol inhaler 2 puff INHALATION Q4H PRN (Reason: Shortness Of Breath Or Wheezing) Discharge Orders: Discharge Order (Routine); Ordered 07/25/22 Ordered By: Jake Garcia Diet: Advance to usual diet Activity on Discharge: As tolerated Stand Alone Forms: Patient Portal Discharge page Care Plan Goals: Read below Health Concerns: Read below Plan of Treatment: Read below Assessment: You were admitted for evaluation of difficulties breathing and edema. Found to have low function of heart of 15-20%. treated with IV water pills with good response as you were evaluated by machinery rigger who adjusted your home medications and suggesting outpaitent follow up fir further work up. Start baby aspirin Start Losartan, Spironolactone and Carvedilol Follow with Dr Williamson from cardiology as outpatient Monitor your blood pressure for next week and report readings to PCP\machinery rigger
--- NOTE | 2022-07-25 11:51 | MHC.CM.PN ---
Pt medically cleared for D/C today. Pt will transport self home later today.
[2022-07-25] MEDS: carvediloL 3.125 MG TABLET PO (12:08)
[2022-07-25 12:15] VITALS: BP 113/79
--- NOTE | 2022-07-25 12:27 | PM.PNCARD ---
Subjective Subjective Date of Service: 07/25/22 Interval history: Seen examined at bedside. Feeling better. Physical Exam Vital Signs: Last Vital Signs Temp 98.7 F 07/25/22 11:11 Pulse 91 07/25/22 11:11 Resp 20 07/25/22 11:11 BP 100/79 07/25/22 11:11 Pulse Ox 96 07/25/22 11:11 O2 Del Method Room Air 07/25/22 11:11 BMI result Body Mass Index 32.8 GENERAL APPEARANCE: in no acute distress, pleasant. NECK: no carotid bruit, no significant jugular venous distention. SKIN: no suspicious lesions, warm and dry. HEART: no murmurs, regular rate and rhythm. LUNGS: clear to auscultation bilaterally. ABDOMEN: soft, nontender. EXTREMITIES: Trace edema. PERIPHERAL PULSES: equal. NEUROLOGIC: No gross deficits, AAO X 3 Objective Labs and Meds 07/25/22 06:31 07/25/22 06:31 Lab results: Laboratory Results - last 24 hr 07/25/22 07/25/22 06:31 06:31 WBC 8.7 RBC 5.06 Hgb 15.9 Hct 49.0 H MCV 96.8 MCH 31.4 MCHC 32.4 RDW 15.7 Plt Count 237 MPV 10.2 Absolute Nucleated RBC 0.000 Nucleated RBC % (auto) 0.0 Sodium 142 Potassium 4.0 Chloride 106 Carbon Dioxide 28 Anion Gap 12 BUN 18 H Creatinine 0.86 Estim Creat Clear Calc 68.2 Estimated GFR > 60 Fasting Glucose 78 Calcium 9.3 Magnesium 2.3 Imaging Radiologist's impression: Impressions Chest X-Ray 07/24/22 10:35 IMPRESSION: Stable enlargement of the cardiac silhouette. Improved interstitial pulmonary edema. Progress Note: A&P Assessment and plan (1) Hypertension: Status: Acute (2) Cardiomyopathy: Status: Acute Plan [age] year female with hypertension presenting with acute congestive heart failure and cardiomyopathy showing severe LV dysfunction. She has been started on guideline directed medical therapy. Clinically euvolemic and improving symptomatically. Can be changed to oral diuretics 40 mg once a day. Continue the spironolactone and losartan. I think we can try adding low-dose carvedilol today 3.125 mg b.i.d.. If she tolerates carvedilol, losartan and spironolactone and her blood pressure is stable then can be discharged home. We will do further workup including cardiac catheterization as outpatient. Thank you for allowing me to participate in the care of your patient. Please feel free to contact me if you have any questions. Time Spent With Patient Time: Total time managing care of this patient today ____ minutes. Progress Note: Quality Stroke Does the patient have a stroke diagnosis?: No Procedures Date of Service Date of Service: 07/25/22
[2022-07-25 13:58] VITALS: BP 121/76; PULSE 81
--- NOTE | 2022-07-25 14:04 | PC.NURSE ---
Patient A&OX4. OOB with steady gait on unit. Denies pain/discomfort. LSCTA denies shortness of breath or chest pain, NS on tele. Occasional dry cough continues per patient. Started on coreg questions and concerns addressed prior to med administration SBP stable before and after given no dizziness or further issues. Plan for discharge to home
== END 2022-07-25 14:34 | disposition home or self-care (01) | DRG 194 ==
LOC: HO.ED 07:03 → HO.EDOVER 07:59 → HO.IMC 12:18
PROVIDERS: Admitting Provider Internal Medicine; Emergency Provider Emergency Medicine Emergency Medical Services; PCP Internal Medicine; Visit Provider Student in an Organized Health Care Education/Training Program
DX: I11.0 Hypertensive heart disease with heart failure (principal); E66.9 Obesity, unspecified; F31.9 Bipolar disorder, unspecified; I50.21 Acute systolic (congestive) heart failure; Z20.822 Contact with and (suspected) exposure to COVID-19; Z68.32 Body mass index [BMI] 32.0-32.9, adult; Z85.3 Personal history of malignant neoplasm of breast; Z92.21 Personal history of antineoplastic chemotherapy; Z90.12 Acquired absence of left breast and nipple; Z92.3 Personal history of irradiation; Z79.82 Long term (current) use of aspirin; Z79.899 Other long term (current) drug therapy
CPT/HCPCS: 0241U; 36415; 71045; 80048; 80061; 80076; 83036; 83690; 83735; 83880; 84484; 85025; 85027; 85379; 93005; 93306; 94640; 99285; J1650; J1940; Q9957

== ENCOUNTER → 2022-08-01 12:31 | Outpatient (BNVA) | payer OTHER, SELFPAY | PROVIDERS: PCP Internal Medicine; Visit Provider Internal Medicine Cardiovascular Disease | DX: I42.9 Cardiomyopathy, unspecified (principal); I10 Essential (primary) hypertension | CPT/HCPCS: 93005; 99212 ==

== ENCOUNTER 2022-08-31 08:19 | Outpatient (REF) | payer OTHER, SELFPAY ==
[2022-08-31 08:31] LABS: MANUAL DIFF FLAG NO
[2022-08-31 08:37] LABS: Basophils Percent Auto 0.5 % (0-2); Eosinophils Absolute Auto 0.2 X10*3/uL (0.0-0.4); Hematocrit 52.7 % (37.0-47.0); Hemoglobin 17.5 g/dl (12.0-16.0); Imm Gran Abs Auto 0.02 X10*3/uL (0.00-0.03); Imm Gran Pct Auto 0.2 % (0.0-0.4); Lymphocytes Absolute Auto 2.2 X10*3/uL (1.2-4.9); Lymphocytes Percent Auto 25.7 % (20-40); Mean Corpuscular HGB Conc 33.2 g/dl (31.0-35.0); Mean Corpuscular Hemoglobin 31.1 pg (27.0-33.0); Mean Corpuscular Volume 93.6 fL (80.0-98.0); Mean Platelet Volume 10.6 fL (9.4-12.3); Monocytes Absolute Auto 0.6 X10*3/uL (0.1-1.2); Monocytes Percent Auto 7.3 % (2-11); Neutrophils Absolute Auto 5.6 x10*3/uL (2.0-8.3); Neutrophils Percent Auto 64.3 % (45-73); Platelet Count 201 X10*3/uL (160-400); Red Blood Count 5.63 X10*6/uL (4.20-5.50); Red Cell Distribution Width 13.6 % (11.0-16.0); White Blood Count 8.6 X10*3/uL (4.8-10.8)
[2022-08-31 09:12] LABS: Prothrombin Time 10.9 SEC (10.0-13.1)
[2022-08-31 09:24] LABS: Alanine Aminotransferase 13 U/L (0-31); Albumin Level 4.2 g/dL (3.5-5.0); Alkaline Phosphatase 91 U/L (39-117); Anion Gap 13 (12-20); Aspartate Amino Transferase 17 U/L (5-31); Bilirubin Total 0.4 mg/dL (0.0-1.0); Blood Urea Nitrogen 16 mg/dL (9-16); Calcium 9.9 mg/dL (8.4-10.2); Carbon Dioxide 27 mmol/L (22-29); Chloride 104 mmol/L (96-108); Cholesterol 185 mg/dL; Estimated Glomerular Filt Rate 55; Glucose Fasting 120 mg/dL (60-99); Glucose Random 121 mg/dL (60-115); HDL Cholesterol 52 mg/dL; LDL Cholesterol Calculated 115 mg/dl; Potassium 4.4 mmol/L (3.3-5.1); Sodium 140 mmol/L (135-145); Total Protein 8.3 g/dL (6.5-8.0); Triglycerides 90 mg/dL
[2022-08-31 09:29] LABS: Thyroid Stimulating Hormone 1.96 uIU/mL (0.32-4.0)
[2022-09-05 14:14] LABS: NT-proBNP 316 pg/mL (<125)
== END 2022-08-31 08:20 | disposition home or self-care (01) ==
LOC: HO.LAB 08:19
PROVIDERS: Internal Medicine Cardiovascular Disease; PCP Internal Medicine; Visit Provider Internal Medicine
DX: I11.0 Hypertensive heart disease with heart failure (principal); I50.20 Unspecified systolic (congestive) heart failure; E78.5 Hyperlipidemia, unspecified; E66.9 Obesity, unspecified
CPT/HCPCS: 36415; 80048; 80053; 80061; 83880; 84443; 85025; 85610

== ENCOUNTER → 2022-11-22 14:09 | Outpatient (BNVA) | payer OTHER, SELFPAY | PROVIDERS: PCP Internal Medicine; Referring Provider Internal Medicine; Visit Provider Nurse Practitioner Family ==

== ENCOUNTER 2022-12-03 09:09 | Outpatient (AMB) | payer OTHER, SELFPAY ==
--- NOTE | 2022-12-03 09:14 | A.OFFPC_ITS ---
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 ) Intake Note: Patient here for a follow up Director Of Capital Giving Required: No Accompanied by: Self / Same As Patient Allergies No Known Allergies Allergy (Verified 12/03/22 09:24) Medication List - Last Reconciled 12/03/22 by Emperatriz Phelps MD aspirin 81 mg PO DAILY blood pressure monitor (Blood Pressure Kit) As directed carvedilol 3.125 mg See Protocol PO BID furosemide 40 mg PO DAILY 90 days losartan 25 mg PO DAILY 90 days nicotine (polacrilex) 2 mg buccal Q8H PRN 30 days sacubitril-valsartan 24-26 mg (Entresto) 1 tab PO BID 90 days spironolactone 25 mg PO DAILY Tobacco use date assessed: 08/02/22 Dental Screening Dental Screen Date: 12/03/22 Did you have a dental visit in the last 12 months?: No Did you have a dental problem in the last 6 months where you did not have access to dental care?: No Was dental information given to patient?: Patient has dentist HPI HPI Comments History of Present Illness Details This is a 57-year-old female with systolic congestive heart failure and elevated hemoglobin that comes for her physical exam. Echocardiogram done July 2022 show ejection fraction of 15-20%. She denies any chest pain, shortness of breath or weight gain. The goal is to not gain 5 lb in a week. Follows with cardiology for her congestive heart failure. Compliant with medications. Has elevated hemoglobin and is a smoker. Denies any symptoms associated with elevated hemoglobin such as headaches. She declines to have any mammograms due to history of breast cancer and declines having chemotherapy ever again. Willing to do Pap smear and Cologuard test. [facility] Medical History (Updated 12/03/22 @ 09:50 by Emperatriz Phelps MD) Overweight (BMI 25.0-29.9) Vitamin D deficiency History of breast cancer Anemia Surgical History History of lumpectomy of right breast History of lumpectomy of left breast Family History Father No problems noted. Mother CAD (coronary artery disease) Gastric cancer, Onset Age: 54 Maternal Aunt Cancer of blood vessel Social History Household Members: None Housing: Apartment Alcohol intake: never Patient Tobacco Use Status: Current someday Tobacco user Tobacco use type: Cigarette Cigarettes Per Day: 1 e-Cigarette/Vaping Use: Never Used Second Hand Smoke Exposure: No service: No Current occupational status: unemployed Cognitive needs: No Hearing needs: No Vision needs: No Questionnaire Thrive Questionnaire Date Thrive assessed: 08/02/22 ARCADIO-7 AMB Questionnaire ARCADIO-7 Date ARCADIO - 7 assessed: 08/02/22 Source: Developed by Drs. Floyd Bob, Chasidy Montoya, Maximilian Morgan and colleagues, with an educational nabil from [employer]. Review of Systems Const All systems reviewed & are unremarkable except as noted in HPI and below Eyes Reports no additional complaints, Denies change in vision and Denies other visual disturbances Card Denies chest pain at rest, Denies chest pain with activity, Denies edema, Denies irregular heart rhythm, Denies claudication, Denies dyspnea, Denies dyspnea on exertion, Denies orthopnea, Denies paroxysmal nocturnal dyspnea and Denies slow heart rate Resp Denies cough, Denies dyspnea and Denies dyspnea on exertion GI Denies abdominal pain, Denies change in bowel habits, Denies excessive flatus, Denies nausea and Denies vomiting Denies urinary incontinence, Denies urinary hesitancy and Denies urinary urgency Musc Denies abnormal gait, Denies atrophy, Denies deformity and Denies limited range of motion Skin/Breast Denies bleeding lesions, Denies changing lesions and Denies rash Neuro Denies abnormal gait and Denies lack of coordination Physical exam (Primary Care) Vital Signs: Last Vital Signs BP 146/100 H 12/03/22 09:15 BMI result Body Mass Index 33.6 Tobacco/Smoking Status: Tobacco use Status Tobacco use date assessed 08/02/22 12/03/22 09:21 Patient Tobacco Use Status Current someday Tobacco 12/03/22 09:21 Tobacco use type Cigarette 12/03/22 09:21 e-Cigarette/Vaping Use Never Used 12/03/22 09:21 Thrive Assessment: Date of Thrive Assessment Date Thrive assessed 08/02/22 12/03/22 09:21 Const Orientation/consciousness: patient oriented x3 [facility] Head: Yes normal to inspection, Yes normocephalic and Yes atraumatic Ears: external ears normal Eyes General: appearance normal, both eyes and all related structures Eyelids: Yes eyelids normal Conjunctivae: conjunctivae normal Neck Neck: Yes normal visual inspection and Yes supple Resp Effort & Inspection: normal respiratory effort Auscultation: clear to auscultation bilaterally Cardio Jugular venous distension: no JVD Rate: regular rate Rhythm: regular rhythm Heart sounds: S1 normal heart sound present and S2 normal heart sound present GI Inspection: Yes normal to inspection Palpation (GI): Soft to palpation and nontender Auscultation: normal bowel sounds Skin General skin exam: no rashes or lesions noted Neuro General: patient oriented x3 and no focal motor deficits Extrem General: Yes full ROM Psych Appearance: grossly normal Assessment and Plan Assessment & Plan (1) Physical exam: Code(s): Z00.00 - Encounter for general adult medical examination without abnormal findings Plan: Repeat in a year (2) Elevated hemoglobin: Code(s): D58.2 - Other hemoglobinopathies Plan: Monitor hemoglobin. Advised to quit smoking. (3) Systolic congestive heart failure: Code(s): I50.20 - Unspecified systolic (congestive) heart failure Plan: Continue Entresto, diuretics and spironolactone. The goal is to not gain 5 lb in a week. Follow-up with Cardiology. Orders: Orders NT-proBNP 6 Months I50.20 - Unspecified systolic (congestive) heart failure IRON PROFILE 6 Months D58.2 - Other hemoglobinopathies Comprehensive [place]. 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 Z12.4 - Encounter for screening for malignant neoplasm of cervix Cologuard Test Z12.11 - Encounter for screening for malignant neoplasm of colon , Z12.12 - Encounter for screening for malignant neoplasm of rectum Medications: Refilled sacubitril-valsartan 24-26 mg (Entresto) 1 tab PO BID 180 tabs 4RF 90 days I42.9 - Cardiomyopathy, unspecified Discontinued losartan Discontinued Reason: Duplicate 25 mg PO DAILY 90 days 90 tabs 1RF Coding Level of Care Code Est Pt Prev Care 40-64y(02650) Diagnoses Physical exam Z00.00 Elevated hemoglobin D58.2 Systolic congestive heart failure I50.20 Time Spent (min) 35
[2022-12-03 09:15] VITALS: BP 146/100; BMI 33.6
[2022-12-03 10:20] VITALS: BP 138/80
== END 2022-12-03 09:49 | disposition home or self-care (01) ==
PROVIDERS: PCP Internal Medicine; Visit Provider Internal Medicine
DX: Z00.00 Encounter for general adult medical examination without abnormal findings (principal); D58.2 Other hemoglobinopathies; I50.20 Unspecified systolic (congestive) heart failure
CPT/HCPCS: 99396